=== PATIENT | male | born 1975 | race Caucasian/White ===

== ENCOUNTER 2017-04-11 08:17 | Emergency (ER) | payer BC ==
[~2017-04-11] VITALS: Ht 185.4 cm; Wt 95.1 kg
[~2017-04-11 08:17] MED LIST: AUGMENTIN875 MG PO; INDOCIN25 MG PO; MOTRIN800 MG PO; NAPROSYN500 MG PO; NORCO 7.5/321 TABLET PO; PEN-VEE K,VEET500 MG PO; PERCOCET 5/31 TABLET PO; PREDNISONE20 MG PO; TYLENOL WITH C1 EACH PO; ULTRAM50 MG PO; VALIUM5 MG PO; ZOFRAN ODT4 MG PO
[2017-04-11] MEDS ORDERED: MOTRIN800 MG PO (10:25)
[2017-04-11] MEDS ORDERED: PERCOCET 5/31 TABLET PO (10:25)
[2017-04-11 10:32] VITALS: BP 148/66
== END 2017-04-11 10:40 | disposition home or self-care (01) ==
LOC: EME 08:17
DX: S93.401D Sprain of unspecified ligament of right ankle, subsequent encounter (principal); X50.9XXD Other and unspecified overexertion or strenuous movements or postures, subsequent encounter; F17.200 Nicotine dependence, unspecified, uncomplicated
CPT/HCPCS: 73610; 99281; 99283

== ENCOUNTER 2017-05-25 08:32 | Emergency (ER) | payer BC ==
[~2017-05-25] VITALS: Ht 185.4 cm; Wt 90.5 kg
[2017-05-25] MEDS ORDERED: ZOFRAN ODT4 MG PO (09:37)
[2017-05-25 09:50] VITALS: BP 125/79
== END 2017-05-25 09:50 | disposition home or self-care (01) ==
LOC: EME 08:32
PROVIDERS: Nurse Practitioner Family
DX: B34.9 Viral infection, unspecified (principal); F17.200 Nicotine dependence, unspecified, uncomplicated
CPT/HCPCS: 71046; 80048; 85027; 87502; 99281; 99284

== ENCOUNTER 2017-06-02 22:14 | Emergency (ER) | payer BC ==
[~2017-06-02] VITALS: Ht 185.4 cm; Wt 91.6 kg
[2017-06-03] MEDS ORDERED: AUGMENTIN875 MG PO (01:27)
[2017-06-03] MEDS ORDERED: INDOCIN50 MG PO (01:27)
[2017-06-03 01:37] VITALS: BP 125/68
== END 2017-06-03 01:43 | disposition home or self-care (01) ==
LOC: EME 22:14
DX: K04.7 Periapical abscess without sinus (principal); K02.9 Dental caries, unspecified; F17.200 Nicotine dependence, unspecified, uncomplicated
CPT/HCPCS: 99281; 99284